=== PATIENT | female | born 1980 | race Caucasian/White ===

== ENCOUNTER 2019-09-21 11:20 | Emergency (ER) | payer OTHER, BC ==
[~2019-09-21] VITALS: Ht 165.1 cm; Wt 93.4 kg
[~2019-09-21 11:20] MED LIST: COLACE100 MG PO; COMPAZINE25 MG PR; PERCOCET 5-3251 EACH PO; REGLAN10 MG PO; ZOFRAN4 MG PO
[2019-09-21] MEDS ORDERED: PROMETHAZINE12.5 M1 PO (14:08)
[2019-09-21] MEDS ORDERED: NORCO 5-325 TA1 EACH PO (14:08)
[2019-09-21] MEDS ORDERED: ZOFRAN4 MG PO (14:08)
[2019-09-23] MEDS ORDERED: HYDROCODON-ACE1 EA11 PO (08:37)
[2019-09-23] MEDS ORDERED: DICLOFENAC SODI75 MG PO (08:37)
[2019-09-23] MEDS ORDERED: GABAPENTIN300 MG PO (08:37)
== END 2019-09-21 14:34 | disposition home or self-care (01) ==
LOC: ED 11:20
DX: S82.851A Displaced trimalleolar fracture of right lower leg, initial encounter for closed fracture (principal); S82.451A Displaced comminuted fracture of shaft of right fibula, initial encounter for closed fracture; S82.831A Other fracture of upper and lower end of right fibula, initial encounter for closed fracture; X50.9XXA Other and unspecified overexertion or strenuous movements or postures, initial encounter; Z85.3 Personal history of malignant neoplasm of breast
CPT/HCPCS: 27818; 73590; 73600; 73610; 99283-25; J1170; J2250; J2550

== ENCOUNTER 2020-10-30 06:50 | Day surgery (SDC) | payer OTHER, BC ==
[~2020-10-30] VITALS: Ht 165.1 cm; Wt 90.9 kg
[~2020-10-30 06:50] MED LIST changes: +DICLOFENAC SODI75 MG PO; +GABAPENTIN300 MG PO; +HYDROCODON-ACE1 EA11 PO; +NORCO 5-325 TA1 EACH PO; +PROMETHAZINE12.5 M1 PO
[2020-10-30] MEDS ORDERED: HYDROCODON-ACE1 EA11 PO (10:01)
[2020-10-30] MEDS ORDERED: DICLOFENAC SODI75 MG PO (10:01)
--- NOTE | 2020-10-30 10:37 | NUR ---
10/30/20 Malu Santillan 0957- PT ARRIVES TO PACU NONAROUSABLE TO NOXIOUS STIMULI WITH AN OPA IN PLACE. RESP EVEN AND UNLABORED. OXYGEN SAT HIGH 90'S TO 100% ON 6L VIA MASK. PT'S RIGHT ANKLE ELEVATED ON A PILLOW AND FOOT OF THE BED PROPED UP. ICE PACKS APPLIED TO BOTH SIDES OF THE RIGHT ANKLE WITH DRESSING IN BETWEEN SKIN AND ICE PACKS.
--- NOTE | 2020-10-30 11:10 | NUR ---
pt arrives to ds rm 4 from pacu drowsy. pt able to deny nausea "right now" and states pain 0/10 after rescue block in pacu. call light within reach, pt provided iced water and crackers. support person at bedside.
--- NOTE | 2020-10-30 11:21 | NUR ---
PT PROVIDED STERILIZED HARDWARE.
--- NOTE | 2020-10-30 12:47 | NUR ---
PT IS GIVEN VERBAL DC INSTRUCTIONS, SHE VERBALIZES UNDERSTANDING. NO QUESTIONS AT THIS TIME. SHE IS TAKEN TO VEHICLE VIA WC, WHERE SHE IS ABLE TO TRANSFER HERSELF FROM WC TO VEHICLE.
--- NOTE | 2020-10-30 14:26 | NUR ---
PT ALERT, ORIENTED AND SUPPORTED BY FRIEND MERISSA. ALL QUESTIONS ASKED WERE ANSWERED. PT REQUESTED PRAYER, WILL FOLLOW NEEDED
--- NOTE | 2020-10-30 15:01 | NUR ---
[id number]: PT TOLERATES PO WELL WITH NO COMPLAINT OF NAUSEA. PT ASKS, "WHEN CAN I LEAVE?" AND DC CRITERIA EXPLAINED. PT HAS URGE TO VOID AND IS ASSISTED TO SIDE OF BED, DENIES ANY DIZZINESS OR NAUSEA WITH POSITION CHANGE. PT ASSISTED WITH 2 RN ASSIST AND USE OF FWW TO BATHROOM. PT STATES NOT BEING ABLE TO FEEL RIGHT FOOT AND DOES NOT PUT PRESSURE ON RIGHT FOOT. PT ABLE TO VOID APPROX 650 MLS YELLOW URINE, BACK TO DS RM 4 TO GET DRESSED. SUPPORT PERSON IN RM TO ASSIST, ENCOURAGED TO OPEN CURTAIN WHEN FINISHED.
--- NOTE | 2020-10-30 15:51 | OR ---
[facility] [address] [facility] [place], [place] [address] Signed DATE OF OPERATION: 10/30/2020 SURGEON: Harriett Olmos MD PREOPERATIVE DIAGNOSIS: Painful hardware, right ankle. POSTOPERATIVE DIAGNOSIS: Painful hardware, right ankle. PROCEDURE PERFORMED: Hardware removal, right ankle. ROLLER SKATE ASSEMBLER: Sujatha Roger PA-C ANESTHESIA: General. BLOOD LOSS: Minimal. TOURNIQUET TIME: 37 minutes. BRIEF HISTORY: Keira is a 39-year-old female with pain in her ankle. She had a fracture dislocation that was fixed and healed uneventfully. However, she developed AVN of the distal tibia. She continued to have pain over the hardware and we elected to remove the hardware. Risks, benefits, and alternatives were discussed at length. She understands and wished to proceed. DESCRIPTION OF PROCEDURE: Once consent was obtained, she was taken to the operating room. After adequate anesthesia, she was placed on the operating room table. All downside pressure points well padded. A well-padded proximal thigh tourniquet was placed. The leg was prepped and draped in a standard sterile fashion. The leg was exsanguinated and tourniquet inflated to 250 mmHg. The lateral side was approached first. The old incision was marked out, carried through the skin and subcutaneous tissue with care taken to look for the peroneal nerve, which was not present. The fascia was divided longitudinally and Electronically Signed By: HARRIETT OLMOS MD 10/30/20 1551 PATIENT NAME: KEIRA MOSQUEDA OPERATIVE REPORT DATE OF : 82 REPORT #: [id number] PHYSICIAN: HARRIETT OLMOS MD PCP: AAKASH PATTON PA-C REPORT IS CONFIDENTIAL AND NOT TO BE RELEASED WITHOUT AUTHORIZATION [facility] [address] [place] [id number] Signed again careful dissection was taken down to the plate. The soft tissue was elevated off the plate and the 8 screws in the plate were removed. The interfragmentary screw anteriorly was removed as was the button for the tight rope fixation. All screw holes were then carefully curetted and irrigated. The fascia was then closed using subcutaneous tissue with 2-0 Stratafix and the skin with lake. Attention was then turned to the medial side. The medial incision was carefully incised longitudinally and again taken down to the plate. The soft tissue was cleared off the plate and the 3 screws were removed. The plate was then elevated off the bone and removed. Again, the screw holes were curetted and the wound was copiously irrigated. It was closed with 2-0 Monocryl and lake. Both wounds were dressed with Acticoat 7 dressing and Magdy wrap. She tolerated the procedure well. All sponge, needle, and instrument counts were correct. Harriett Olmos MD BA/NEAL /[id number] Copies: ~ Electronically Signed By: HARRIETT OLMOS MD 10/30/20 1551 PATIENT NAME: KEIRA MOSQUEDA OPERATIVE REPORT DATE OF : 82 REPORT #: [id number] PHYSICIAN: HARRIETT OLMOS MD PCP: AAKASH PATTON PA-C REPORT IS CONFIDENTIAL AND NOT TO BE RELEASED WITHOUT AUTHORIZATION
== END 2020-10-30 12:45 | disposition home or self-care (01) ==
LOC: DS 06:50
PROVIDERS: ATTEND Specialist
PROC: 0SPF04Z Removal of Internal Fixation Device from Right Ankle Joint, Open Approach (ICD-10-PCS; principal; 2020-10-30 09:00)
DX: T84.84XA Pain due to internal orthopedic prosthetic devices, implants and grafts, initial encounter (principal); G89.18 Other acute postprocedural pain
CPT/HCPCS: J0131; J0690; J1100; J1200; J1885; J2001; J2250; J2405; J2704; J2795; J3010; J7121

== ENCOUNTER 2022-02-18 07:14 | Day surgery (SDC) | payer OTHER ==
[~2022-02-18] VITALS: Ht 165.1 cm; Wt 102.0 kg
[~2022-02-18 07:14] MED LIST changes: +PHENTERMINE H37.5 MG PO
--- NOTE | 2022-02-18 09:15 | NUR ---
02/18/22 0915 Malu Rodriguez 0911- PT ARRIVES TO PACU REACTIVE TO VERBAL STIMULI. PT ASKS IF THE PROCEDURE IS OVER. PT UPDATED THAT SHE IS IN THE RECOVERY ROOM. PT FALLS TO SLEEP WHEN NOT BEING TALKED TO. RESP EVEN AND UNLABORED. OXYGEN SAT 100% ON 2L VIA CO2 NC. 0912- OXYGEN TITRATED OFF.
--- NOTE | 2022-02-18 15:44 | OR ---
[facility] [address] [place], [place] [address] Signed DATE OF OPERATION: 02/18/2022 SURGEON: Domingo Huertas MD PREOPERATIVE DIAGNOSIS: Clinical symptoms of reflux, occasions of solid and liquid food dysphagia x2 years. POSTOPERATIVE DIAGNOSES: No evidence of stricture or neoplasm of esophagus; flap valve intact, mild gastritis, minimal distal esophagitis. PROCEDURE: Esophagogastroduodenoscopy with biopsy. ANESTHESIA: Intravenous sedation; fentanyl 100 mcg and Versed 7 mg. INDICATION: This 41-year-old white woman is a patient of Ms. Pretty Soto and has had "reflux" type symptoms as well as occasional solid food dysphagia. She has no spontaneous regurgitation and no hematemesis. She has had symptoms for at least two years. She has no family history of esophageal stomach cancer. She has taken Prilosec in the past transitioning the Protonix and ultimately another uncertain [id number] medicine that has not been helpful. She has undergone cholecystectomy in the past. She is admitted at this time to undergo upper endoscopy to better characterize the problem, understand the risks of bleeding, infection, and perforation. FINDINGS: There was no evidence of stricture of the esophagus and surprisingly little in the way of distal esophagitis. The flap valve appeared reasonably normal. There was mild gastritis proximally. There was no sign of ulcer. The duodenum was normal. CLOtest was negative. DESCRIPTION OF PROCEDURE: The patient was brought to the endoscopy suite, given topical lidocaine, hypopharyngeal anesthesia and placed in lateral decubitus position. She was given intravenous sedation to the point of slurred speech and nystagmus with full cardiopulmonary monitoring. A bite block was placed. An Olympus video upper endoscope was passed in the hypopharynx. The vocal cords were briefly visualized and found to be normal. The scope Electronically Signed By: DOMINGO HUERTAS MD 02/18/22 1544 PATIENT NAME: KEIRA MOSQUEDA OPERATIVE REPORT DATE OF : 82 REPORT #: [id number] PHYSICIAN: DOMINGO HUERTAS MD PCP: PRETTY SOTO PA-C REPORT IS CONFIDENTIAL AND NOT TO BE RELEASED WITHOUT AUTHORIZATION [facility] [address] [place], [place] [address] Signed was then advanced in the esophagus, throughout its length it appeared essentially normal. There was mild distal esophagitis, but no stricture, no Baldwin's epithelium and certainly no neoplasm. The scope was advanced to the stomach, which was insufflated with air. Rugal folds were normal. There was no bile in the stomach. Antral motility appeared normal. Pylorus was normal. Scope was passed through it into the duodenum. Biopsies were taken, though it appeared normal. Scope was withdrawn. A biopsy was taken of the antrum and more proximal stomach for both MADELIN and pathologic testing. Retroflexed view showed an intact flap valve to my surprise. The scope was withdrawn. A biopsy was taken of the distal esophagus, it looked reasonably normal and the midesophagus as well though there was no evidence of eosinophilic esophagitis clinically. The scope was removed. The patient was taken to the recovery room in good condition. CONCLUDING DIAGNOSIS: Uncertainty as to the source of her symptoms. Certainly does not have gross esophagitis and no stricture or neoplasm. PLAN: We will initiate Prilosec 20 mg p.o. daily on a dedicated basis and have her return to see me in approximately 4 weeks. We will review her pathology report and her symptom complex once on a steady sate of PPI medication. MD KENNY Du/KEMIL /[id number] cc: Pretty Soto PA-C Copies: PRETTY SOTO PA-C ~ Electronically Signed By: DOMINGO HUERTAS MD 02/18/22 1544 PATIENT NAME: KEIRA MOSQUEDA OPERATIVE REPORT DATE OF : 82 REPORT #: [id number] PHYSICIAN: DOMINGO HUERTAS MD PCP: PRETTY SOTO PA-C REPORT IS CONFIDENTIAL AND NOT TO BE RELEASED WITHOUT AUTHORIZATION
--- NOTE | 2022-02-20 15:51 | PATH ---
[facility] [address] [place], [place] [address] Signed SPECIMEN(S): A DUODENAL BIOPSY SPECIMEN(S): B STOMACH BIOPSY SPECIMEN(S): C DISTAL ESOPHAGEAL BIOPSY SPECIMEN(S): D MID ESOPHAGEAL BIOPSY SPECIMEN SOURCE: A. DUODENAL BIOPSY B. STOMACH BIOPSY C. DISTAL ESOPHAGEAL BIOPSY D. MID ESOPHAGEAL BIOPSY CLINICAL HISTORY: GERD, dysphagia. Post-procedure: Mild gastritis, mild esophagitis. FINAL PATHOLOGIC DIAGNOSIS: A. Duodenal biopsy: - Benign duodenal mucosa, negative for significant villous effacement or epithelial lymphocytosis. B. Stomach biopsy: - Benign gastric fundic-type mucosa with focal mild chronic gastritis. - Negative for evidence of Helicobacter organisms on routine HE stained sections. C. Distal esophageal biopsy: - Benign esophageal mucosa, negative for significantly increased epithelial eosinophils. - Negative for glandular mucosa. D. Mid esophageal biopsy: - Benign esophageal mucosa, negative for increased epithelial eosinophils. JVR:lowell:[id number] MICROSCOPIC EXAMINATION: Histologic sections of all submitted blocks are examined by light microscopy. These findings, together with the gross examination, support the pathologic diagnosis. GROSS DESCRIPTION: Four specimens are received in four containers, labeled "Keira Mosqueda." A. The specimen, labeled " Keira Mosqueda, #1," and designated on the requisition "duodenum biopsy," is received in formalin and consists of two monterroso soft tissue fragment(s) that measure 0.3 and 0.4 cm in greatest dimension. The specimen is entirely submitted in cassette (A1). PATIENT NAME: KEIRA MOSQUEDA PATHOLOGY DATE OF : 82 REPORT #: [id number] PHYSICIAN: REGINALD POLLARD PCP: AAKASH PATTON PA-C REPORT IS CONFIDENTIAL AND NOT TO BE RELEASED WITHOUT AUTHORIZATION [facility] [address] [place], [place] [address] Signed B. The specimen, labeled " Keira Mosqueda, #2," and designated on the requisition "stomach biopsy," is received in formalin and consists of two monterroso soft tissue fragment(s) that measure 0.2 and 0.4 cm in greatest dimension. The specimen is entirely submitted in cassette (B1). C. The specimen, labeled " Keira Mosqueda, #3," and designated on the requisition "distal lower esophagus biopsy," is received in formalin and consists of three white-monterroso soft tissue fragment(s) that measure 0.3-0.4 cm in greatest dimension. The specimen is entirely submitted in cassette (C1). D. The specimen, labeled " Keira Mosqueda, #4," and designated on the requisition "mid esophagus biopsy," is received in formalin and consists of four white-monterroso soft tissue fragment(s) that measure 0.2-0.7 cm in greatest dimension. The specimen is entirely submitted in cassette (D1). FB (under the direct supervision of a pathologist) The Gross Description was prepared using a voice recognition system. The report was reviewed for accuracy; however, sound-alike word errors, addition and/or deletions may occur. If there is any question about this report, please contact Client Services. PERFORMING LABORATORY: The technical component was performed by [facility], [address] [place] [id number] (CLIA# [id number]). Professional interpretation was performed by [facility], [address] [place] [address], [place] [address] (CLIA#: [id number]). Diagnostician: Chadwick Yu MD Pathologist Electronically Signed 02/20/2022 Copies: ~ PATIENT NAME: KEIRA MOSQUEDA PATHOLOGY DATE OF : 82 REPORT #: [id number] PHYSICIAN: REGINALD PATHOLOGY PCP: AAKASH PATTON PA-C REPORT IS CONFIDENTIAL AND NOT TO BE RELEASED WITHOUT AUTHORIZATION
== END 2022-02-18 10:08 | disposition home or self-care (01) ==
LOC: OPS 07:14 → DS 07:14 → OPS 08:30 → DS 14:00 → OPS 14:00
PROVIDERS: ATTEND Surgery
PROC: 0DB68ZX Excision of Stomach, Via Natural or Artificial Opening Endoscopic, Diagnostic (ICD-10-PCS; 2022-02-18)
PROC: 0DB38ZX Excision of Lower Esophagus, Via Natural or Artificial Opening Endoscopic, Diagnostic (ICD-10-PCS; principal; 2022-02-18 08:30)
DX: K29.50 Unspecified chronic gastritis without bleeding (principal); K21.00 Gastro-esophageal reflux disease with esophagitis, without bleeding; Z90.49 Acquired absence of other specified parts of digestive tract; Z85.3 Personal history of malignant neoplasm of breast; E66.9 Obesity, unspecified; Z68.36 Body mass index [BMI] 36.0-36.9, adult; Z91.048 Other nonmedicinal substance allergy status
CPT/HCPCS: G0500; J2250; J3010